=== PATIENT | female | born 1970 | race Caucasian/White ===

== ENCOUNTER 2018-03-21 01:12 | Emergency (ER) | payer SELFPAY ==
[~2018-03-21] VITALS: Ht 185.4 cm; Wt 77.0 kg
[2018-03-21] MEDS ORDERED: HYDROCODONE/ACETAMINOPHEN 5/325MG TABLET PO ONE (03:30)
[2018-03-21] MEDS ORDERED: LIDOCAINE HCL 1% 20ML VIAL (Pyxis) INJ MC ONE (03:30)
[2018-03-21] MEDS ORDERED: IBUPROFEN 600MG TABLET PO ONE (03:30)
[2018-03-21] MEDS ORDERED: TETANUS, DIPHTHERIA, PERTUSSIS VAC/PF 0.5ML (>7YR OLD) IM ONE (03:30)
[2018-03-21] MEDS ORDERED: BACITRACIN ZINC OINT UDPKT TOP ONE (03:30)
[2018-03-21 03:41] VITALS: BP 128/82
== END 2018-03-21 06:49 | disposition home or self-care (01) ==
LOC: ER 01:12
DX: S01.81XA Laceration without foreign body of other part of head, initial encounter (principal); S01.511A Laceration without foreign body of lip, initial encounter; Y08.89XA Assault by other specified means, initial encounter; Y93.89 Activity, other specified; Y92.9 Unspecified place or not applicable; Z85.850 Personal history of malignant neoplasm of thyroid
CPT/HCPCS: 12016; 70450; 70486; 81025; 90471; 90715; 99284; J3490

== ENCOUNTER 2018-03-26 14:25 | Emergency (ER) | payer SELFPAY ==
[~2018-03-26] VITALS: Ht 167.6 cm; Wt 75.0 kg
[2018-03-26 14:55] VITALS: BP 153/74
== END 2018-03-26 17:27 | disposition home or self-care (01) ==
LOC: ER 16:33
DX: Z48.02 Encounter for removal of sutures (principal)
CPT/HCPCS: 99281; Z7610